=== PATIENT | female | born 2000 | race Two or more races ===

== ENCOUNTER 2023-05-09 18:40 | Emergency (ER) | payer OTHER ==
[~2023-05-09] VITALS: Ht 160 cm; Wt 79.4 kg
[2023-05-09 20:58] LABS: HEMATOCRIT 38.1 % (36.0-45.00); HEMOGLOBIN 12.8 g/dL (12.0-15.00); MEAN CELL VOLUME 85.6 fL (80.00-100.00); MEAN CORPUSCULAR HEMOGLOBIN 28.7 pg (27.00-32.0); MEAN CORPUSCULAR HGB CONC 33.5 g/dl (32.0-36.0); PLATELET COUNT 368 K/uL (150-450); RED BLOOD COUNT 4.44 M/uL (4.00-6.00); RED CELL DISTRIBUTION WIDTH 13.6 % (11.5-14.5)
[2023-05-09 21:02] LABS: PH,URINE 6.5 (5.0-8.0); URINE APPEARANCE Clear; URINE BILIRRUBIN Negative (NEGATIVE); URINE BLOOD Negative; URINE COLOR Yellow; URINE GLUCOSE Negative (NEGATIVE); URINE LEUKOCYTE Negative; URINE NITRATE Negative; URINE PROTEIN Negative (NEGATIVE)
[2023-05-09 21:03] LABS: URINE BACTERIA 201.5 uL (0.0-1933); URINE EPITHELIAL CELLS 13.5 uL (0.0-38.8); URINE WBC 7.7 uL (0.0-23.2)
[2023-05-09 21:09] LABS: URINE RBC 1.4 uL (0.0-20.8)
== END 2023-05-09 22:16 | disposition home or self-care (01) ==
LOC: ER 18:40
PROVIDERS: General Practice
DX: O20.8 Other hemorrhage in early pregnancy (principal)

== ENCOUNTER 2023-05-22 15:08 | Emergency (ER) | payer OTHER ==
[~2023-05-22] VITALS: Ht 160 cm; Wt 79.4 kg
[2023-05-22] MEDS ORDERED: PRENATAL + DHA1 EAC1 (15:15)
[2023-05-22] MEDS ORDERED: FOLIC ACID20 MG (15:15)
[2023-05-22 17:12] LABS: HEMOGLOBIN 14.3 g/dL (12.0-15.00); MEAN CELL VOLUME 85.2 fL (80.00-100.00); MEAN CORPUSCULAR HGB CONC 34.1 g/dl (32.0-36.0); PLATELET COUNT 392 K/uL (150-450); RED BLOOD COUNT 4.93 M/uL (4.00-6.00); RED CELL DISTRIBUTION WIDTH 13.9 % (11.5-14.5)
[2023-05-22 17:14] LABS: PH,URINE 6.5 (5.0-8.0); URINE APPEARANCE Clear; URINE BILIRRUBIN Negative (NEGATIVE); URINE BLOOD Negative; URINE COLOR Yellow; URINE GLUCOSE Negative (NEGATIVE); URINE LEUKOCYTE Negative; URINE NITRATE Negative; URINE PROTEIN Negative (NEGATIVE); URINE UROBILINOGEN 0.2 E.U./dl
[2023-05-22 17:18] LABS: URINE BACTERIA 80.6 uL (0.0-1933); URINE EPITHELIAL CELLS 7.3 uL (0.0-38.8); URINE WBC 9.5 uL (0.0-23.2)
[2023-05-22 17:50] LABS: CALCIUM 9.3 mg/dL (8.5-10.1); CREATININE SERUM 0.68 mg/dL (0.55-1.02); GFR 105.42; POTASSIUM 3.51 mEq/L (3.5-5.1)
== END 2023-05-22 17:56 | disposition home or self-care (01) ==
LOC: ER 15:08
PROVIDERS: General Practice
DX: O21.0 Mild hyperemesis gravidarum (principal); O20.9 Hemorrhage in early pregnancy, unspecified; Z3A.01 Less than 8 weeks gestation of pregnancy; Z88.8 Allergy status to other drugs, medicaments and biological substances

== ENCOUNTER 2023-06-26 12:56 | Emergency (ER) | payer OTHER ==
[~2023-06-26] VITALS: Ht 160 cm; Wt 79.4 kg
[~2023-06-26 12:56] MED LIST: FOLIC ACID20 MG; PRENATAL + DHA1 EAC1
[2023-06-26 14:36] LABS: HEMOGLOBIN 13.3 g/dL (12.0-15.00); MEAN CELL VOLUME 86.7 fL (80.00-100.00); MEAN CORPUSCULAR HEMOGLOBIN 29.5 pg (27.00-32.0); MEAN CORPUSCULAR HGB CONC 34.1 g/dl (32.0-36.0); PLATELET COUNT 346 K/uL (150-450); RED CELL DISTRIBUTION WIDTH 13.9 % (11.5-14.5)
[2023-06-26 14:56] LABS: CALCIUM 9.5 mg/dL (8.5-10.1); CREATININE SERUM 0.66 mg/dL (0.55-1.02); GFR 109.12; POTASSIUM 3.86 mEq/L (3.5-5.1)
[2023-06-26 15:41] LABS: PH,URINE 7.5 (5.0-8.0); URINE APPEARANCE Turbid; URINE BILIRRUBIN Negative (NEGATIVE); URINE COLOR Yellow; URINE GLUCOSE Negative (NEGATIVE); URINE LEUKOCYTE Large; URINE NITRATE Negative
[2023-06-26 15:44] LABS: URINE BACTERIA 1720.9 uL (0.0-1933); URINE EPITHELIAL CELLS 12.8 uL (0.0-38.8); URINE WBC 2579.7 uL (0.0-23.2)
[2023-06-26 16:06] LABS: URINE PROTEIN 100 (NEGATIVE)
[2023-06-26 16:07] LABS: URINE BLOOD TRACES
== END 2023-06-26 16:47 | disposition home or self-care (01) ==
LOC: ER 12:56
PROVIDERS: General Practice
DX: N39.0 Urinary tract infection, site not specified (principal); R10.2 Pelvic and perineal pain; Z88.1 Allergy status to other antibiotic agents

== ENCOUNTER 2023-12-20 14:00 | Inpatient (IN) | payer OTHER ==
[~2023-12-20] VITALS: Ht 160 cm; Wt 91.6 kg
[2024-01-04 05:39] LABS: HEMATOCRIT 36.4 % (36.0-45.00); MEAN CELL VOLUME 78.3 fL (80.00-100.00); MEAN CORPUSCULAR HGB CONC 33.5 g/dl (32.0-36.0); PLATELET COUNT 347 K/uL (150-450); RED BLOOD COUNT 4.65 M/uL (4.00-6.00); RED CELL DISTRIBUTION WIDTH 16.1 % (11.5-14.5)
[2024-01-04 05:40] LABS: HEMOGLOBIN 12.2 g/dL (12.0-15.00); MEAN CORPUSCULAR HEMOGLOBIN 26.2 pg (27.00-32.0)
[2024-01-04 05:57] LABS: INR < 0.93; PARTIAL THROMBOPLASTIN TIME 27.5 SECONDS (22.0-34.0); PROTHROMBIN TIME 9.8 SECONDS (9.0-11.5)
[2024-01-04] MEDS ORDERED: RINGERS SOLUTION,LACTATED 1,000 ML IV SCH (06:00)
[2024-01-04 06:02] LABS: ALBUMIN 2.4 gm/dL (3.4-5.0); BILIRUBIN TOTAL 0.23 mg/dL (0.3-1.2); CALCIUM 9.3 mg/dL (8.5-10.1); CREATININE SERUM 0.65 mg/dL (0.55-1.02); GFR 111.06; GLOBULINA 4.1 G/DL (2.4-3.5); POTASSIUM 3.86 mEq/L (3.5-5.1); TOTAL PROTEIN 6.5 gm/dL (6.4-8.2)
[2024-01-04] MEDS ORDERED: FAMOtidine 20 MG TABLET PO SCH (06:17)
[2024-01-04] MEDS ORDERED: OXYTOCIN 500 ML IV ONE (08:30)
[2024-01-04] MEDS ORDERED: CHLORHEXIDINE GLUCONATE 120 ML BOTTLE TOP ONE (12:05)
[2024-01-04] MEDS ORDERED: ERYTHROMYCIN BASE 1 GM TUBE OP ONE ×3 (12:05→19:45)
[2024-01-04] MEDS ORDERED: LIDOCAINE HCL 1% 10ML VIAL ONE (12:06)
[2024-01-04] MEDS ORDERED: OXYTOCIN 20 UNITS/1000ML RL PIGGYBAG IV ONE (12:07)
[2024-01-04] MEDS ORDERED: MORPHINE SULFATE 4 MG/ML CARTRIDGE IV PRN (13:00)
[2024-01-04] MEDS ORDERED: FAMOTIDINE/PF 20 MG/2 ML VIAL IV SCH (17:00)
[2024-01-04] MEDS ORDERED: CEFOXITIN SODIUM 2,000 MG VIAL IV STA (17:05)
[2024-01-04] MEDS ORDERED: CITRIC ACID/SODIUM CITRATE 30 ML BLIST.PACK PO STA (17:05)
[2024-01-04] MEDS ORDERED: OXYTOCIN 10 UNITS/ML VIAL ONE ×2 (17:17→22:22)
[2024-01-04] MEDS ORDERED: OXYTOCIN 10 UNITS/ML VIAL IV ONE (19:45)
[2024-01-04] MEDS ORDERED: KETOROLAC TROMETHAMINE 30 MG VIAL IM ONE ×2 (21:50)
[2024-01-04] MEDS ORDERED: KETOROLAC TROMETHAMINE 30 MG VIAL ONE (21:50)
[2024-01-04] MEDS ORDERED: OXYTOCIN 1,000 ML IV ONE (22:25)
[2024-01-04] MEDS ORDERED: MORPHINE SULFATE 4 MG/ML VIAL IV PRN (23:00)
[2024-01-05] MEDS ORDERED: KETOROLAC TROMETHAMINE 10 MG TABLET PO SCH
[2024-01-05] MEDS ORDERED: SIMETHICONE 125 MG CAPSULE PO SCH (01:00)
[2024-01-05] MEDS ORDERED: CEFOXITIN SODIUM 2,000 MG VIAL IV ONE (01:00)
[2024-01-05 02:01] LABS: HEMATOCRIT 32.1 % (36.0-45.00); HEMOGLOBIN 10.8 g/dL (12.0-15.00); MEAN CELL VOLUME 77.8 fL (80.00-100.00); MEAN CORPUSCULAR HEMOGLOBIN 26.1 pg (27.00-32.0); MEAN CORPUSCULAR HGB CONC 33.5 g/dl (32.0-36.0); PLATELET COUNT 266 K/uL (150-450); RED BLOOD COUNT 4.13 M/uL (4.00-6.00)
[2024-01-05 06:52] LABS: ABG PH 7.232 (7.35-7.45); ABG pCO2 57.3 mmHg (35-45)
[2024-01-05 06:53] LABS: ABG PO2 14.2 mmHg (80-100); BASE EXCESS -4.8 mmol/l; BICARBONATE 23.6 mmol/l (23-25); SaO2 12.2 %; Tco2 25.3 mmol/l; o2 21 %
[2024-01-05 07:56] LABS: HEMATOCRIT 30.9 % (36.0-45.00); HEMOGLOBIN 10.4 g/dL (12.0-15.00); MEAN CELL VOLUME 77.8 fL (80.00-100.00); MEAN CORPUSCULAR HEMOGLOBIN 26.1 pg (27.00-32.0); MEAN CORPUSCULAR HGB CONC 33.5 g/dl (32.0-36.0); PLATELET COUNT 258 K/uL (150-450); RED BLOOD COUNT 3.97 M/uL (4.00-6.00); RED CELL DISTRIBUTION WIDTH 16.4 % (11.5-14.5)
[2024-01-05] MEDS ORDERED: ACETAMINOPHEN 500 MG GEL..CAP PO SCH (13:43)
[2024-01-05] MEDS ORDERED: GABAPENTIN 300 MG CAPSULE PO SCH (13:44)
== END 2024-01-07 12:10 | disposition home or self-care (01) | DRG 788 ==
LOC: LDR 01-04 04:32 → OB/GYN 01-04 19:29
PROVIDERS: ADMIT Obstetrics & Gynecology Maternal & Fetal Medicine; ATTEND Obstetrics & Gynecology Maternal & Fetal Medicine
PROC: 4A1HXCZ Monitoring of Products of Conception, Cardiac Rate, External Approach (ICD-10-PCS; 2024-01-04)
PROC: 10D00Z1 Extraction of Products of Conception, Low, Open Approach (ICD-10-PCS; principal; 2024-01-04 20:00)
DX: O36.8130 Decreased fetal movements, third trimester, not applicable or unspecified (principal); O33.8 Maternal care for disproportion of other origin; O62.1 Secondary uterine inertia; Z3A.40 40 weeks gestation of pregnancy; Z37.0 Single live birth; Z20.822 Contact with and (suspected) exposure to COVID-19

== ENCOUNTER 2024-01-02 10:58 | Outpatient (CLI) | payer OTHER | END 2024-01-02 12:01 | disposition home or self-care (01) | LOC: NST 10:58 | PROVIDERS: ATTEND Obstetrics & Gynecology | DX: Z34.83 Encounter for supervision of other normal pregnancy, third trimester (principal) ==